=== PATIENT | male | born 1995 | race African-American/Black ===

== ENCOUNTER 2018-01-16 13:04 | Emergency (ER) | payer SELFPAY ==
[2018-01-16] MEDS ORDERED: LORAZEPAM 1 MG TABLET PO ONE (14:12)
--- NOTE | 2018-01-16 14:17 | ER Document Report ---
ED General - General Chief Complaint: Anxiety Stated Complaint: PANIC ATTACK Time Seen by Provider: 01/16/18 14:05 Mode of Arrival: Ambulatory Information source: Patient, Friend Notes: This 22-year-old male patient comes emergency room complaining of a panic attack that started around 12 noon today. He reports the last time he had a panic attack was several months ago. He used to get panic attacks quite a lot when he abuses drugs but there is no longer does that. He does take losartan for blood pressure and as needed Vistaril. He took the Vistaril without relief. He is here visiting from [place] for the weekend. He reports that they were drinking a lot of alcohol the past 2 evenings. At this time he feels quite anxious. He cannot identify any trigger for this panic attack today. - Related Data Allergies/Adverse Reactions: shellfish derived Allergy (Verified 01/16/18 14:05) Past Medical History - General Information source: Patient, Friend - Social History Smoking Status: Current Every Day Smoker Cigarette use (# per day): No - Smokes cigars Chew tobacco use (# tins/day): No Smoking Education Provided: No Frequency of alcohol use: Social Drug Abuse: Other - Past history of substance abuse, no longer abuses drugs Lives with: Friend Family History: Hypertension Patient has suicidal ideation: No Patient has homicidal ideation: No - Past Medical History Cardiac Medical History: Reports: Hx Hypertension Pulmonary Medical History: Reports: None EENT Medical History: Reports: None Neurological Medical History: Reports: None Endocrine Medical History: Reports: None Renal/ Medical History: Reports: None GI Medical History: Reports: None Musculoskeltal Medical History: Reports None Skin Medical History: Reports None Psychiatric Medical History: Reports: Hx Anxiety, Other - Panic attacks Surgical Hx: Negative Review of Systems - Review of Systems Constitutional: No symptoms reported EENT: No symptoms reported Cardiovascular: No symptoms reported Respiratory: No symptoms reported Gastrointestinal: No symptoms reported Musculoskeletal: No symptoms reported Skin: No symptoms reported Hematologic/Lymphatic: No symptoms reported Neurological/Psychological: Anxiety Physical Exam - Vital signs Vitals: Temp Pulse Resp BP Pulse Ox 99.5 F 114 H 22 H 158/98 H 100 01/16/18 13:12 01/16/18 13:12 01/16/18 13:12 01/16/18 13:12 01/16/18 13:12 Interpretation: Tachycardic - With some hyperventilation - General General appearance: Alert, Anxious, Other - Frequently begins shaking his left arm and increasing his respiratory rate - HEENT Head: Normocephalic, Atraumatic Eyes: Normal Pupils: PERRL Neck: Normal - Respiratory Respiratory status: No respiratory distress Breath sounds: Normal - Cardiovascular Rhythm: Regular Heart sounds: Normal auscultation Murmur: No - Abdominal Inspection: Normal - Back Back: Normal - Extremities General upper extremity: Normal inspection General lower extremity: Normal inspection - Neurological Neuro grossly intact: Yes - Psychological Associated symptoms: Anxious - Skin Skin Temperature: Warm Skin Moisture: Dry Skin Color: Normal Course - Re-evaluation Re-evalutation: 01/16/18 15:13 Patient is much improved. He states he is still a little anxious does appear to be. He will be given an additional 1/2 mg of Ativan and discharge. He has a flight back to [place] to catch soon and needs to be discharge. - Vital Signs Vital signs: Temp Pulse Resp BP Pulse Ox 99.5 F 114 H 22 H 158/98 H 100 01/16/18 13:12 01/16/18 13:12 01/16/18 13:12 01/16/18 13:12 01/16/18 13:12 Discharge - Discharge Clinical Impression: Panic attack, Anxiety High blood pressure Qualifiers: Hypertension type: essential hypertension Qualified Code(s): I10 - Essential ( primary) hypertension Condition: Stable Disposition: HOME, SELF-CARE Additional Instructions: Panic Attack: The cause of panic attacks is unknown. Symptoms can include chest pain, shortness of breath, palpitations, sweats, and a sense of smothering or impending doom. In time, the panic attacks can lead to generalized anxiety and phobias. Because the symptoms can mimic heart attack, pulmonary embolism, and other serious diseases, the physician has evaluated you for these conditions. There is no evidence of a serious problem. An acute panic attack usually goes away by itself without treatment. A severe attack can be treated with medicine to calm you. Long-term, antidepressant medicines may help prevent attacks. Counselling can also be very beneficial in dealing with panic attacks. Panic attacks are less likely if you are getting regular exercise, proper diet, and plenty of sleep. It's normal for panic attacks to cause many frightening symptoms. However, you should call or return if your symptoms change significantly or if you are worsening. Follow-up with your doctor when you return home to recheck your blood pressure and to discuss your panic attacks. RETURN TO THE EMERGENCY ROOM IF ANY NEW OR WORSENING SYMPTOMS.
[2018-01-16] MEDS ORDERED: LORAZEPAM 0.5 MG TABLET PO ONE (15:12)
[2018-01-16 15:15] VITALS: BP 144/91
== END 2018-01-16 15:22 | disposition home or self-care (01) ==
LOC: ER 13:04
DX: F41.0 Panic disorder [episodic paroxysmal anxiety] (principal); I10 Essential (primary) hypertension; Z91.013 Allergy to seafood
CPT/HCPCS: 99283